=== PATIENT | female | born 1965 ===

== ENCOUNTER 2023-08-09 10:17 | Outpatient (CLI) | payer OTHER ==
[~2023-08-09 10:17] MED LIST: SYNTHROID88 MCG PO
== END 2023-08-09 10:27 | disposition home or self-care (01) ==
LOC: SONOGRAMA 10:17
PROVIDERS: ATTEND Specialist
DX: D17.1 Benign lipomatous neoplasm of skin and subcutaneous tissue of trunk (principal); S99.921A Unspecified injury of right foot, initial encounter

== ENCOUNTER 2023-08-10 06:32 | Day surgery (SDC) | payer OTHER ==
[2023-08-05 12:53] LABS: HEMATOCRIT 37.6 % (36.0-45.00); HEMOGLOBIN 12.6 g/dL (12.0-15.00); MEAN CELL VOLUME 88.9 fL (80.00-100.00); MEAN CORPUSCULAR HEMOGLOBIN 29.8 pg (27.00-32.0); MEAN CORPUSCULAR HGB CONC 33.5 g/dl (32.0-36.0); PLATELET COUNT 215 K/uL (150-450); RED BLOOD COUNT 4.23 M/uL (4.00-6.00); RED CELL DISTRIBUTION WIDTH 13.5 % (11.5-14.5)
[2023-08-05 13:27] LABS: INR 1.05; PARTIAL THROMBOPLASTIN TIME 28.5 SECONDS (22.0-34.0)
[2023-08-05 14:08] LABS: BILIRUBIN TOTAL 0.62 mg/dL (0.3-1.2); CALCIUM 8.7 mg/dL (8.5-10.1); CREATININE SERUM 0.82 mg/dL (0.55-1.02); GFR 71.35; POTASSIUM 4.13 mEq/L (3.5-5.1)
== END 2023-08-10 12:15 | disposition home or self-care (01) ==
LOC: CIR.AMB 06:32
PROVIDERS: ATTEND Specialist
DX: D17.1 Benign lipomatous neoplasm of skin and subcutaneous tissue of trunk (principal); D17.5 Benign lipomatous neoplasm of intra-abdominal organs; E03.9 Hypothyroidism, unspecified; Z20.822 Contact with and (suspected) exposure to COVID-19; Z91.013 Allergy to seafood